=== PATIENT | female | born 1990 | race Caucasian/White ===

== ENCOUNTER 2017-10-08 14:56 | Emergency (ER) | payer BC ==
[~2017-10-08] VITALS: Ht 149.9 cm; Wt 81.6 kg
[~2017-10-08 14:56] MED LIST: LANS30CA66 PO
[2017-10-08 15:13] VITALS: BP 150/102
[2017-10-08] MEDS ORDERED: CYCL10TA2 PO (15:13)
[2017-10-08] MEDS ORDERED: NAPR-683 PO (15:13)
--- NOTE | 2017-10-08 15:14 | PHYS DOC ---
Adult General Chief Complaint Chief Complaint: SHOULDER INJURY [facility] HPI Patient is a 27 year old female presents to the emergency department with a one -day history of left shoulder pain. Patient has no known injury. She states she' s had gradual onset of discomfort across the left upper back and has gradually worsened today. 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 She is used 1 dose of Tylenol without relief of symptoms. Review of Systems Review of Systems Constitutional: Denies fever or chills [] Eyes: Denies change in visual acuity, redness, or eye pain [] HENT: Denies nasal congestion or sore throat [] Respiratory: Denies cough or shortness of breath [] Cardiovascular: No additional information not addressed in HPI [] GI: Denies abdominal pain, nausea, vomiting, bloody stools or diarrhea [] : Denies dysuria or hematuria [] Musculoskeletal: Left upper back pain Integument: Denies rash or skin lesions [] Neurologic: Denies headache, focal weakness or sensory changes [] Endocrine: Denies polyuria or polydipsia [] All other systems were reviewed and found to be within normal limits, except as documented in this note. Allergies Allergies Allergies Coded Allergies Type Severity Reaction Last Updated Verified No Known Drug Allergies 09/20/14 No Physical Exam Physical Exam Constitutional: Well developed, well nourished, no acute distress, non-toxic appearance. [] HENT: Normocephalic, atraumatic, bilateral external ears normal, oropharynx moist, no oral exudates, nose normal. [] Eyes: PERRLA, EOMI, conjunctiva normal, no discharge. [] Neck: Normal range of motion, no midline tenderness, supple, no stridor. [] Cardiovascular:Heart rate regular rhythm, no murmur [] Lungs & Thorax: Bilateral breath sounds clear to auscultation [] Abdomen: Bowel sounds normal, soft, no tenderness, no masses, no pulsatile masses. [] Skin: Warm, dry, no erythema, no rash. [] Back: Tender to palpate over the left trapezius. Extremities: No tenderness, no cyanosis, no clubbing, ROM intact without apparent increase in pain, no edema. [] Neurologic: Alert and oriented X 3, normal motor function, normal sensory function, no focal deficits noted. [] Psychologic: Affect normal, judgement normal, mood normal. [] EKG EKG [] Radiology/Procedures Radiology/Procedures [] Course & Med Decision Making Course & Med Decision Making 60 mg IM, Norflex 60 mg IM in the emergency department. Plan will be for discharge home diagnosis trapezius strain, prescription for Flexeril and Naprosyn. Moist heat to the affected area. Pertinent Labs and Imaging studies reviewed. (See chart for details) [] Dragon Disclaimer Dragon Disclaimer This electronic medical record was generated, in whole or in part, using a voice recognition dictation system. Departure Departure Impression: Primary Impression: Trapezius strain Disposition: HOME, SELF-CARE Condition: STABLE [facility]errals: [facility] [place] Patient Instructions: Muscle Strain Scripts Naproxen (NAPROSYN) 500 Mg Tablet 500 MG PO BID for 20 Days, #40 TAB Prov: DARRELL CAMPBELL APRN 10/08/17 Cyclobenzaprine Hcl (CYCLOBENZAPRINE HCL) 10 Mg Tablet 10 MG PO TID, #30 TAB Prov: DARRELL CAMPBELL APRN 10/08/17 Problem Qualifiers Primary Impression: Trapezius strain Encounter type: initial encounter Laterality: left Qualified Codes: S46.812A - Strain of other muscles, fascia and tendons at shoulder and upper arm level, left arm, initial encounter DARRELL CAMPBELL APRN Oct 08, 2017 15:14
[2017-10-08] MEDS ORDERED: KETOROLAC 60 MG/2 ML INJ. IM ONE (15:15)
[2017-10-08] MEDS ORDERED: ORPHENADRINE CITRATE 60 MG/2 ML VIAL. IM ONE (15:15)
== END 2017-10-08 15:32 | disposition home or self-care (01) ==
LOC: ER 14:56
DX: S46.812A Strain of other muscles, fascia and tendons at shoulder and upper arm level, left arm, initial encounter (principal); X58.XXXA Exposure to other specified factors, initial encounter; Y93.89 Activity, other specified; Y92.89 Other specified places as the place of occurrence of the external cause; Y99.8 Other external cause status
CPT/HCPCS: 96372; 99284; J1885; J2360

== ENCOUNTER → 2018-04-08 | Outpatient (CLI) | payer BC ==
[2018-04-08] MEDS: GADOBUTROL 7.5 MMOL/7.5 ML VIAL IV (10:51)
== END | disposition home or self-care (01) ==
LOC: KCIC MRI 09:12
DX: R10.84 Generalized abdominal pain (principal); G89.29 Other chronic pain
CPT/HCPCS: 72197; 74183; A9585